=== PATIENT | female | born 1955 | race Caucasian/White ===

== ENCOUNTER → 2024-02-20 08:17 | Outpatient (REF) | payer MEDICARE, OTHER, SELFPAY | LOC: RCS 08:17 | PROVIDERS: ATTENDING PHYSICIAN Nurse Practitioner; FAMILY PHYSICIAN Internal Medicine | DX: I48.91 Unspecified atrial fibrillation (principal) | CPT/HCPCS: 93017; 93350 ==

== ENCOUNTER → 2024-02-24 09:02 | Outpatient (REF) | payer MEDICARE, OTHER, SELFPAY | LOC: RCS 09:02 | PROVIDERS: ATTENDING PHYSICIAN Nurse Practitioner; FAMILY PHYSICIAN Internal Medicine | DX: I48.91 Unspecified atrial fibrillation (principal) | CPT/HCPCS: 93306 ==

== ENCOUNTER → 2024-08-09 09:50 | Outpatient (REF) | payer MEDICARE, OTHER, SELFPAY ==
[2024-08-09 10:37] LABS: % Basophils 0.8 % (0-2); % Eosinophils 1.3 % (0-6); % Immature Granulocytes 0.3 % (0-0.5); % Lymphocytes 31.7 % (20.5-51.1); % Monocytes 9.9 % (1.7-9.3); Absolute Eosinophils 0.1 10^3/uL (0-0.7); Absolute Lymphocytes 1.2 10^3/uL (1.2-3.4); Absolute Monocytes 0.4 10^3/uL (0.1-0.6); Absolute Neutrophils 2.2 10^3/uL (1.4-6.5); Hemoglobin 12.7 g/dL (12.0-16.0); Mean Corp Hgb Conc. 34.3 g/dL (33.0-37.0); Mean Corpuscular Hgb 31.1 pg (27.0-31.0); Mean Corpuscular Volume 90.7 fL (81.0-99.0); Mean Platelet Volume 8.9 fL (7.4-10.4); Nucleated Red Blood Cells % 0 %; Platelet Count 183 10^3/uL (130-400); Red Blood Cell Count 4.08 10^6/uL (4.20-5.40); Red Cell Dist. Width 12.6 % (11.5-14.5); White Blood Cell Count 3.9 10^3/uL (4.8-10.8)
[2024-08-09 10:48] LABS: INR 1.95; PT 22.4 Sec (11.4-14.6)
[2024-08-09 10:58] LABS: ALT (SGPT) 26 U/L (0-35); AST (SGOT) 26 U/L (14-36); Alkaline Phosphatase 66 U/L (38-126); Blood Urea Nitrogen 13 mg/dl (7-17); Calcium 10.1 mg/dl (8.4-10.2); Carbon Dioxide 24 mmol/L (22-30); Chloride 106 mmol/L (98-107); Glucose 106 mg/dl (70-99); Potassium 4.3 mmol/L (3.5-5.1); Sodium 142 mmol/L (135-145); Total Bilirubin 1.9 mg/dl (0.2-1.3); Total Protein 7.4 g/dl (6.3-8.2); eGFR > 60.00
== END ==
LOC: SDSPAT 09:50
PROVIDERS: ATTENDING PHYSICIAN Internal Medicine Cardiovascular Disease; FAMILY PHYSICIAN Internal Medicine
DX: I48.91 Unspecified atrial fibrillation (principal)
CPT/HCPCS: 36415; 80053; 83735; 85025; 85610; 86850; 86900; 86901; 93005

== ENCOUNTER 2024-08-24 08:04 | Day surgery (SDC) | payer MEDICARE, OTHER, SELFPAY ==
[2024-08-09 10:10] VITALS: BMI 23.9
--- NOTE | 2024-08-09 11:15 | HPS.HSE ---
Family Physician
-
Family Physician: NO INTERVIEW UNKNOWN
Chief Complaint
-
Paroxysmal atrial fibrillation.
History of Present Illness
The patient is a 69 year old female presenting today for paroxysmal atrial fibrillation. The patient reports dyspnea on exertion, intermittent palpitations, lightheadedness, and dizziness likely secondary to this diagnosis. She previously
underwent 5 cardioversions, with the last occurring in November 2017, and pulmonary vein isolation in September 2017 for her arrhythmia. She is on current pharmacological therapy with Metoprolol Succinate. She does report compliance with Xarelto for oral
anticoagulation. She notes that her current symptoms associated with her arrhythmia greatly interfere with her activities of daily living and overall impact her quality of life. She is interested in pursuing pulmonary vein isolation again for
further arrhythmia management. She denies complaints today such as chest pain, shortness of breath at rest, nausea, vomiting, diarrhea, lightheadedness, dizziness, cough, sore throat, or fever.
Medical History
Past Medical History
Past Medical History: Reports Other
Additional Past Medical History:
1. Paroxysmal atrial fibrillation, status post cardioversion x5 and pulmonary vein isolation 09/2017; pharmacological therapy with Metoprolol Succinate and oral anticoagulation with Xarelto.
2. Atrial tachycardia.
3. Frequent PVCs.
4. Junctional bradycardia.
5. Incomplete right bundle branch block.
6. Elevated blood pressure without diagnosis of hypertension.
7. Mild aortic regurgitation.
8. Osteoarthritis.
9. Hypothyroidism.
10. Vaginal atrophy.
11. Mild leukopenia.
Past Surgical History: Reports Other
Additional Past Surgical History:
1. Pulmonary vein isolation.
2. Cardioversion x5.
3. Transesophageal echocardiogram.
4. Left elbow fracture repair.
5. Colonoscopy.
Social History
Tobacco: Non-smoker
Alcohol: None
Personal:
Living: With Family (in a 2 story home. )
Family History
Family History: Not pertinent
Allergies / Home Medications
Allergy/Medication List:
Home medications:
1. Levothyroxine 100 mcg p.o. daily.
2. Metoprolol Succinate 25 mg p.o. daily.
3. Xarelto 20 mg p.o. every evening.
Allergies: No known allergies.
Review of Systems
-
A 12 point ROS was completed and negative except as noted: Yes
Physical Exam
Vital Signs
Blood pressure 157/75. Heart rate 50. Respirations 18. Pulse ox 99% on room air.
Height 5 feet, 9 inches. Weight 73.3 kg. BMI 23.9.
Physical Exam
General: Well Developed, Well Nourished and No Apparent Distress
HEENT: NormoCephalic, Moist mucous membranes, Atraumatic and PERRLA
Respiratory: Clear
Cardiac: Bradycardia (with ectopy. ) and Murmur
GI: Soft, Non Tender and Non Distended
Musculoskeletal: No Edema and Normal Gait & Station
Skin: Warm and Dry
Neuro: AO x 3 and Nonfocal/grossly intact
Laboratory Results
-
DIAGNOSTIC STUDIES as of 08/09/2024: White blood cell count 3.9. Hemoglobin 12.7. Platelet count 183,000. PT 22.4. INR 1.95. Sodium 142. Potassium 4.3. BUN 13. Creatinine 0.6. Glucose 106. Calcium 10.1. Magnesium 2.0. AST 26. ALT 26. Albumin 5.0.
Type and screen A positive.
EKG 08/09/2024: Sinus bradycardia with occasional PVCs. Incomplete right bundle branch block.
Echocardiogram 02/24/2024: Normal left ventricular size. Normal wall thickness. Normal systolic function. No regional wall motion abnormalities are seen. LV ejection fraction is 66% by Deshpande's biplane method of discs. Normal diastolic function.
Normal right ventricular size and function. Mildly thickened mitral valve leaflets. Mitral valve opens normally. Trace mitral regurgitation. Trileaflet aortic valve with normal leaflet excursion. Mild aortic regurgitation. Tricuspid valve opens
normally. Trace tricuspid regurgitation. Estimated pulmonary artery pressure of 24 mmHg, assuming a right atrial pressure of 3 mmHg. Compared to prior study 07/13/2021 there is no significant change.
Stress echocardiogram 02/20/2024: Normal Stress Echocardiogram with normal hemodynamic response to exercise. Overall, low risk stress test at 13 METS. Of note, patient had frequent PVCs, bigeminy, several 3-4 beat runs of nonsustained ventricular
tachycardia during stress test and in recovery.
Impression/Plan
-
IMPRESSION/PLAN:
1. Paroxysmal atrial fibrillation: The patient is in need of pulmonary vein isolation with Dr. Ty Capone on 08/24/2024. The benefits and risks of the procedure have been explained to the patient. The patient understands these risks and wishes to
proceed. She will not be required to undergo a pre-procedural transesophageal echocardiogram as she has been compliant with her home oral anticoagulation. She is aware to continue her Eliquis up until the night prior to her procedure. She will take
no medications the morning of her ablation.
[2024-08-24] VITALS (13 sets, daily range): BP systolic 105–159; BP diastolic 63–109
[2024-08-24 11:32] LABS: ACT-LR - POC 181 Seconds (116-155)
[2024-08-24 11:47] LABS: ACT-LR - POC 234 Seconds (116-155)
--- NOTE | 2024-08-24 11:58 | ITS.CL.ABL ---
[facility] - Ablation
Ablation
Procedure Report:
ELECTROPHYSIOLOGY ABLATION STUDY
DATE:: August 24, 2024�����������������������������REFERRING: Dr. Ismael Nicholson
INDICATION: Persistent supraventricular tachycardia in the form of atrial fibrillation.��Prior cryoballoon PVI in 2018 with extra PV lesions outside left common ostium. No prior history of AT/AFL. Prior class Ic use
HISTORY: See H and P.��As above
ANTIARRHYTHMIC DRUG: Prior class Ic antiarrhythmic drug use limited by sinus bradycardia
PRE-PROCEDURE KENYA: No atrial thrombus on intracardiac ultrasound
PRESENTING RHYTHM: Atrial fibrillation
'TIME-OUT':��called and confirmed.
SEDATION/ANESTHESIA:��provided via the anesthesia department using general anesthesia (LMA).
INTRAVENOUS/ARTERIAL ACCESS:
Right femoral venous - 8Fr
Left femoral venous - 8 Fr, 6 Fr
[id number] suture to bilateral femoral venous sites
Ultrasound guidance for bilateral femoral vein access was utilized by me to obtain access with demonstration of normal anatomy
CHADS-VASC Score:
HAS-Bled Score
PROCEDURE:
1.��A decapolar CS catheter was placed within the CS for mapping and pacing.��This was also used as the reference catheter for the 3-D map. During ablation the patient did organized into an irregular tachycardia which was organized 230 to 270 ms.
Proximal and distal coronary sinus were utilized for entrainment and PPI was greater than 30 ms greater than tachycardia cycle length at proximal and distal coronary sinus. The patient would vacillate between this organized arrhythmia and atrial
fibrillation and as such we perform no additional ablation outside of the pulmonary veins and the left atrial posterior wall. Post ablation the patient went through programmed stimulation from both atria down to refractoriness and the patient was
noninducible for any tachyarrhythmia post ablation and cardioversion.
2. The intracardiac ultrasound catheter was positioned in the RA to identify the FO for targeting of transseptal puncture, assist��in identification of the pulmonary vein ostia, monitoring pre and post ablation pulmonary vein flow velocities,
monitoring for 'bubble' formation during RF application as a sign of thermal injury,��and to monitor for pericardial effusion during mapping and ablation procedure.���Left atrial size, LV ejection fraction, and pulmonary vein flows were monitored
pre and post ablation procedure. The other valves were inspected and found to be free of significant regurgitation or stenosis.
3.��Half of the calculated heparin bolus was administered prior to the first transeptal puncture.��Transseptal puncture was performed to diagnose RA and LA pressure so that safety of LA mapping and ablation could be further assessed, and to access
the left atrium and pulmonary veins for mapping and ablation.��This entailed advancing an 16.8 Yi sheath, RF wire, with dilator into the superior vena cava and withdrawing both (monitoring intracardiac ultrasound, fluoroscopy and tip pressure)
with the tip oriented toward the atrial septum.��The fossa ovalis was engaged (indicated by sudden displacement of the sheath tip as well as tenting of the fossa seen on intracardiac ultrasound).��Left atrial access required a pass with the
Brockenbrough needle extended.��Left atrial catheter position was confirmed by pressure monitoring (RA mean pressure 8 mm Hg and LA mean presure 14 mm Hg), LA saturation (99%),��as well as fluoroscopy.��The sheath was advanced over the dilator and
positioned in the left atrium.����The remainder of the calculated heparin bolus was administered and heparin was
infused to maintain ACT at 300 -350 seconds throughout the case.
4.��RA pacing was performed via the proximal decapolar poles and LA pacing was performed via the distal decapolr poles.
5. A quadrapolar catheter was first positioned at the His position for His Bundle recording which was tagged via the 3-D Navex sytem, and then passed to the RVA for RV pacing and recording.
6. The multipolar and Penta splint catheters were placed in each of the LIPV, LSPV, RSPV and the RIPV.��There was connection at the body of the left common ostium of the inferior and roof portions with the ostial and antral left superior and left
inferior veins isolated distally. There was focal connection at the posterior em of the right inferior pulmonary vein at the right superior pulmonary vein chronically isolated. The pulm veins were ablated in atrial fibrillation. A total of 54
lesions were given. All of in basket lesions were given to each of the left pulmonary veins and common ostium as well as the right superior and right inferior pulmonary veins particular attention given to the em. Flower lesions were given to
the roof posterior wall and floor of the left atrium. Electrical silence was demonstrated in atrial fibrillation so the patient was converted into junctional bradycardia. Intermittent sinus node function was noted particularly after atrial pacing.
Entrance and exit block was confirmed in all 4 pulmonary veins and the left atrial posterior wall roof and floor. We then performed EP study as above and could not induce any other atrial arrhythmia.
9. Patient has history of sick sinus syndrome which is known since at least 2018. She was recovering sinus node function during lightening of anesthesia and as such she is not catheters withdrawn and [id number] sutures were placed at the
femoral veins.
TOTAL FLOURO TIME: 14.1 minutes 140 mGy
TOTAL RF DURATION: 0 minutes
REVERSAL OF HEPARIN: 35 mg of protamine, slow IV administration
COMPLICATIONS:
None
Intracardiac US shows no pericardial effusion post ablation.
SUMMARY:��
Complex left atrial mapping and ablation.
Reisolation of the left common ostium and right inferior pulmonary vein as well as the left atrial posterior wall as above with the Kelsy we have PFA catheter.
RECOMMENDATIONS:
1. Consider same-day discharge
2. Resume anticoagulation
3.��Resume low-dose metoprolol as long as sinus node function is recovering
4.��If she has further recurrence would consider class III antiarrhythmic
Copy to: Dr. Ismael Nicholson
--- NOTE | 2024-08-24 15:40 | W.PN.UPDATE ---
Update Note
Progress Note Update
69 yo WF s/p PVI (same day). She denies cp, sob, doe diet, b/l groins F08 c/d/i no HT, soft, EKG SR. She will resume Xarelto tonight after 6pm. She will continue metoprolol. Activity restrictions reviewed. She will f/u Dr. Capone in 2 mo. She is
for d/c home after 5pm if groins stable.
== END 2024-08-24 17:00 | disposition home or self-care (01) ==
LOC: CATH 08:04
PROVIDERS: ATTENDING PHYSICIAN Internal Medicine Cardiovascular Disease; FAMILY PHYSICIAN Internal Medicine
DX: I48.0 Paroxysmal atrial fibrillation (principal); I47.19 Other supraventricular tachycardia; I49.3 Ventricular premature depolarization; R00.1 Bradycardia, unspecified; I45.10 Unspecified right bundle-branch block; M19.90 Unspecified osteoarthritis, unspecified site; E03.9 Hypothyroidism, unspecified; N95.2 Postmenopausal atrophic vaginitis; D72.819 Decreased white blood cell count, unspecified; R03.0 Elevated blood-pressure reading, without diagnosis of hypertension; I35.1 Nonrheumatic aortic (valve) insufficiency; Z79.890 Hormone replacement therapy; Z79.899 Other long term (current) drug therapy; Z79.01 Long term (current) use of anticoagulants
CPT/HCPCS: C1732; C1894; C1730; C1759; C1892; 85347; 93005; 93656; 93657; C1733; C1766